=== PATIENT | female | born 1965 | race Caucasian/White ===

== ENCOUNTER 2019-05-01 22:42 | Emergency (ER) | payer OTHER ==
[~2019-05-01] VITALS: Ht 180.3 cm; Wt 109.8 kg
[~2019-05-01 22:42] MED LIST: ABILIFY 2 MG2 MG PO; ADULT LOW DOSE81 MG; BACTRIM DS TAB1 EACH PO; CALCIUM 600 +1 EAC5 PO; CLINDAMYCIN 1%60 M1 TP; CLONAZEPAM 1 MG1 M1; COLACE100 MG; COLACE100 MG PO; COUMADIN 10MG T10 M1; CYMBALTA PO; CYMBALTA30 MG PO; FLEXERIL; HYDROCODON-ACE1 EAC7; HYDROCODONE-AP1 EA10 PO; LAC-HYDRIN225 GM; LEVOTHROID125 MCG; LIDODERM 5%1 PATCH; MULTIVITAMINS; NICOTINE TRANSD21 M1; NIFEDIPINE10 MG; PERCOCET 5-3251 EACH PO; PRILOSEC 20 MG20 MG; PROAIR HFA8.5 GM IH; SENNA-S TABLET1 EACH; SIMVASTATIN40 MG; SPIRIVA; TOPROL XL50 MG; TRAMADOL 50 MG50 MG; VENTOLIN17 GM INH; VITAMIN D250000 UNIT; VOLTAREN GEL 1100 G1 TOP; ZONEGRAN100 MG
[2019-05-01 22:49] VITALS: BP 154/82
[2019-05-02] MEDS ORDERED: MOBIC15 MG PO (00:19)
== END 2019-05-02 00:32 | disposition home or self-care (01) ==
LOC: ER 22:42
DX: M65.4 Radial styloid tenosynovitis [de Quervain] (principal); I10 Essential (primary) hypertension; E78.00 Pure hypercholesterolemia, unspecified; J44.9 Chronic obstructive pulmonary disease, unspecified; E07.9 Disorder of thyroid, unspecified; Z88.0 Allergy status to penicillin; Z88.8 Allergy status to other drugs, medicaments and biological substances